=== PATIENT | female | born 1960 | race Two or more races ===

== ENCOUNTER 2022-08-23 07:27 | Outpatient (CLI) | payer OTHER | END 2022-08-23 07:36 | disposition home or self-care (01) | LOC: MAMO-SONO 07:27 | PROVIDERS: ATTEND Obstetrics & Gynecology | DX: N60.21 Fibroadenosis of right breast (principal); N60.22 Fibroadenosis of left breast ==

== ENCOUNTER 2022-08-24 11:53 | Outpatient (CLI) | payer OTHER | END 2022-08-24 11:56 | disposition home or self-care (01) | LOC: NUCLEAR 11:53 | PROVIDERS: ATTEND Obstetrics & Gynecology | DX: M81.0 Age-related osteoporosis without current pathological fracture (principal) ==

== ENCOUNTER 2022-10-14 07:32 | Outpatient (CLI) | payer OTHER | END 2022-10-14 07:37 | disposition home or self-care (01) | LOC: LAB 07:32 | DX: C73 Malignant neoplasm of thyroid gland (principal); E89.0 Postprocedural hypothyroidism; E78.2 Mixed hyperlipidemia; E11.9 Type 2 diabetes mellitus without complications ==

== ENCOUNTER 2023-04-06 08:38 | Outpatient (CLI) | payer OTHER | END 2023-04-06 08:42 | disposition home or self-care (01) | LOC: SONOGRAMA 08:38 | PROVIDERS: ATTEND Internal Medicine Sports Medicine | DX: C73 Malignant neoplasm of thyroid gland (principal); E89.0 Postprocedural hypothyroidism ==

== ENCOUNTER → 2023-09-10 13:54 | Outpatient (CLI) | payer OTHER | END | disposition home or self-care (01) | LOC: MAMO-SONO 11:08 | PROVIDERS: ATTEND Obstetrics & Gynecology | DX: N60.21 Fibroadenosis of right breast (principal); N60.22 Fibroadenosis of left breast ==

== ENCOUNTER 2024-09-05 07:14 | Outpatient (CLI) | payer OTHER | END 2024-09-05 07:19 | disposition home or self-care (01) | LOC: TOM 07:14 | DX: C54.1 Malignant neoplasm of endometrium (principal) ==